=== PATIENT | male | born 1990 | race Two or more races ===

== ENCOUNTER 2019-05-18 19:20 | Emergency (ER) | payer MEDICAID ==
[~2019-05-18] VITALS: Ht 175.3 cm; Wt 80.7 kg
[~2019-05-18 19:20] MED LIST: ALPR2TAB2 PO
--- NOTE | 2019-05-18 19:40 | NUR ---
PT BIBSELF C/O COUGH AND CONGESTION X2 DAYS. ALSO C/O FEVER. PT AAOX4. RESPIRATIONS EVEN AND UNLABORED. SKIN WARM AND INTACT. VITALS STABLE. TRACK BROOM OPERATOR ACUTE DISTRESS NOTED AT THIS TIME. WILL CONTINUE TO MONITOR
[2019-05-18] MEDS ORDERED: predniSONE 20 MG TABLET PO ONE (20:00)
[2019-05-18] MEDS ORDERED: IPRATROPIUM NEB FS 0.5 MG/2.5 ML AMPUL.NEB NEB ONE (20:00)
[2019-05-18] MEDS ORDERED: ALBUTEROL FS 2.5 MG/3 ML VIAL.NEB NEB ONE (20:00)
[2019-05-18] MEDS ORDERED: predniSONE 20 MG TABLET ONE (20:04)
--- NOTE | 2019-05-18 20:27 | NUR ---
RT AT BEDSIDE FOR BREATHING TREATMENT
[2019-05-18] MEDS ORDERED: IPRATROPIUM NEB FS 0.5 MG/2.5 ML AMPUL.NEB ONE (20:29)
[2019-05-18] MEDS ORDERED: ALBUTEROL FS 2.5 MG/3 ML VIAL.NEB ONE (20:29)
--- NOTE | 2019-05-18 21:03 | NUR ---
Patient discharged to home in stable condition. Written and verbal after care instructions given. Patient verbalizes understanding of instruction.Pt ambulatory with a steady gait
[2019-05-18 21:06] VITALS: BP 138/79
== END 2019-05-18 21:06 | disposition home or self-care (01) ==
LOC: ER 19:27
DX: J06.9 Acute upper respiratory infection, unspecified (principal); F41.9 Anxiety disorder, unspecified; Z88.0 Allergy status to penicillin; Z79.899 Other long term (current) drug therapy
CPT/HCPCS: 71045; 94640 ×2; 99284; J7512

== ENCOUNTER 2019-11-17 15:29 | Emergency (ER) | payer MEDICAID, OTHER ==
[~2019-11-17] VITALS: Ht 175.3 cm; Wt 77.1 kg
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
[2019-11-17] MEDS ORDERED: IBUPROFEN 600 MG TABLET PO ONE ×2 (16:08→16:30)
[2019-11-17 16:15] VITALS: BP 138/86
--- NOTE | 2019-11-17 16:15 | NUR ---
Patient discharged to home in stable condition. Written and verbal after care instructions given. Patient verbalizes understanding of instruction and RX. Pt given MD refferal. Pt denies pain. Ambulated with steady gait.
== END 2019-11-17 16:16 | disposition home or self-care (01) ==
LOC: ER 15:39
DX: S22.088A Other fracture of T11-T12 vertebra, initial encounter for closed fracture (principal); G89.29 Other chronic pain; Z88.0 Allergy status to penicillin; Z60.2 Problems related to living alone; Z79.899 Other long term (current) drug therapy; X58.XXXA Exposure to other specified factors, initial encounter; Y93.89 Activity, other specified; Y92.89 Other specified places as the place of occurrence of the external cause; Y99.8 Other external cause status

== ENCOUNTER 2020-01-05 12:55 | Emergency (ER) | payer OTHER ==
[~2020-01-05] VITALS: Ht 175.3 cm; Wt 78.0 kg
[2020-01-05 13:08] VITALS: BP 147/96
--- NOTE | 2020-01-05 13:57 | NUR ---
Patient discharged to home in stable condition. Written and verbal after care instructions given. Patient verbalizes understanding of instruction.
== END 2020-01-05 13:59 | disposition home or self-care (01) ==
LOC: ER 12:59
DX: L03.114 Cellulitis of left upper limb (principal); L02.414 Cutaneous abscess of left upper limb; F41.9 Anxiety disorder, unspecified; Z88.0 Allergy status to penicillin; Z60.2 Problems related to living alone; Z79.899 Other long term (current) drug therapy

== ENCOUNTER 2021-01-10 08:16 | Emergency (ER) | payer OTHER ==
[~2021-01-10] VITALS: Ht 177.8 cm; Wt 91.2 kg
[2021-01-10 08:24] VITALS: BP 132/65
--- NOTE | 2021-01-10 08:24 | NUR ---
PT BIB PD FROM HOME, PER EMS REPORT PT TRIED TO TIE A SUSPENDER TO HIS NECK S/P ARGUMENT W/ . PT DENIES SI OTHERWISE. PT PLACED ON MONITOR. PD AT BEDSIDE AWAITING MD HINTON.
--- NOTE | 2021-01-10 08:46 | NUR ---
PT REFUSING BLOOD DRAW. DR TRACEY AWARE
--- NOTE | 2021-01-10 09:07 | NUR ---
AMY BABB TALKING TO PATIENT.
--- NOTE | 2021-01-10 10:00 | NUR ---
PLACED ON 5150 FOR DTS BY PD.
--- NOTE | 2021-01-10 10:08 | NUR ---
PT PLACED ON RESTRAINTS, COOPERATIVE TO STAFF. SITTER AT BEDSIDE. WILL CONTINUE TO MONITOR.
--- NOTE | 2021-01-10 10:23 | NUR ---
INVESTMENT OFFICER AT BEDSIDE FOR BLOOD DRAW.
[2021-01-10 10:29] LABS: BASOPHILS # (AUTO) 0.1 /CMM (0.0-0.2); BASOPHILS % (AUTO) 1.2 % (0.0-2.0); EOSINOPHILS % (AUTO) 0.1 % (0.0-6.0); HEMATOCRIT 41 % (39-51); HEMOGLOBIN 13.8 g/dL (13.5-17.5); LYMPHOCYTES # (AUTO) 2.6 /CMM (0.8-4.8); LYMPHOCYTES % (AUTO) 39.1 % (20.0-44.0); MEAN CORPUSCULAR HGB CONC 33 g/dl (31.0-36.0); MEAN CORPUSCULAR VOLUME 87 fL (80-96); MONOCYTES # (AUTO) 0.9 /CMM (0.1-1.30); NEUTROPHILS # (AUTO) 3.1 /CMM (1.8-8.9); NEUTROPHILS % (AUTO) 46.6 % (43.0-81.0); PLATELET COUNT (AUTO) 301 /CMM (150-450); RED BLOOD CELL COUNT(AUTO) 4.74 MIL/uL (4.5-6.0); WHITE BLOOD COUNT (AUTO) 6.7 K/uL (4.3-11.0)
[2021-01-10 10:32] LABS: CALCIUM, SERUM 8.7 mg/dL (8.5-10.1); CARBON DIOXIDE 28 mmol/L (21-32); CHLORIDE 106 mmol/L (98-107); CREATININE 0.9 mg/dL (0.6-1.3); GLUCOSE 89 mg/dL (74-106); POTASSIUM 3.7 mmol/L (3.5-5.1); SODIUM SERUM 142 mmol/L (136-145); UREA NITROGEN, BLOOD 19 mg/dL (7-18)
--- NOTE | 2021-01-10 10:35 | NUR ---
PT PROVIDED W/ MEAL TRAY.
[2021-01-10 10:38] LABS: ACETAMINOPHEN 0 ug/ml (10-30); ALBUMIN 4.1 g/dL (3.4-5.0); ALCOHOL, BLOOD < 3 mg/dL (0-0); ALKALINE PHOSPHATASE 113 U/L (46-116); ASPARTATE AMINOTRANSFERASE 23 U/L (15-37); BILIRUBIN,DIRECT 0.2 mg/dL (0.0-0.2); BILIRUBIN,TOTAL 0.7 mg/dL (0.2-1.0); TOTAL PROTEIN, SERUM 8.1 g/dL (6.4-8.2)
[2021-01-10 10:49] LABS: ALANINE AMINOTRANSFERASE 46 U/L (12-78)
[2021-01-10 11:04] LABS: BILIRUBIN,URINE SMALL (NEGATIVE); COLOR,URINE YELLOW (YELLOW); LEUKOCYTE ESTERASE ,URINE Negative (NEGATIVE); NITRITE, URINE Negative (NEGATIVE); PROTEIN,URINE Trace mg/dl (NEGATIVE); UGLUCOSE Negative (NEGATIVE)
[2021-01-10 11:11] LABS: BACTERIA,URINE None seen /HPF (None Seen); RBC,URINE 0-2 /HPF (0-2); SQUAMOUS EPITHELIAL CELL,UR None Seen /HPF (None Seen); WBC,URINE 0-2 /HPF (0-3)
--- NOTE | 2021-01-10 12:10 | NUR ---
PER RICCARDO TRACEY, PT IS MEDICALLY CLEARED. TRIED TO CALL ART RULING MACHINE FEEDER FOR PSYCH EVAL. UNABLE TO LEAVE A MESSAGE.
--- NOTE | 2021-01-10 12:31 | NUR ---
SS Consult: SS Consult requested for attempted Suicide. The pt. is a 30-year old male in ED. SW met with pt. bedside. The pt. is alert & oriented x 4. Pt. appears intoxicated as evidenced by slightly slurred speech, glossy eyes. Pt. with full affect and poor insight and poor judgement. Pt. is irritable and remained cooperative throughout interview. The pt. stated that his girlfriend/, Peri James gave to their child a couple of days ago and the is still in NICU. Per Pt. he was concerned because his girlfriend would not listen to him and rest. The pt. stated that he then used his suspenders to hang himself to get his girlfriends attention. Pt. stated that this was a superficial attempt and showed SW that he has no alonzo on his neck and used an elastic band. Pt. is showing signs of possible Borderline Personality Disorder. Pt. stated that if he goes home today he does not feel he will be unsafe. Pt. denies suicidal ideation or plan for suicide at this time. SW assessed pt. mental health Hx. Pt denies Hx. of SI or depression. Pt. stated that he is under the care of psychiatrist, Dr. Levine for anxiety. Pt. could not elaborate or provide contact number. SW offered to make safety plan with pt. and his family. Pt. gave verbal consent for SW to speak to his mother. Pt. is agreeable and had SW call his mother, Jo Ann Bonner [phone] so she may ask the pt.s girlfriend, Peri James to provide SW with psychiatrist number. However, upon speaking with Peri James it was very evident she is also highly intoxicated. Peri James could not and did not provide psychiatrist number. HOLLEY educated pt.s family regarding possibility of personality disorder, signs & symptoms. HOLLEY provided family with mental health urgent care centers, outpatient psychiatry and counseling resources and Abner expressed understanding and is agreeable to take pt. is needed. Pt. resides with his mother, grandmother, sister and girlfriend at [[address] [facility] [address] [facility] [facility] [address]]. Abner informed HOLLEY that the pt. has been abusing prescription medication since the age of 16 when he was prescribed with Xanax. SW provide family with Addiction resources as pt. requires rehab. Pt. denies drug use and denies it is a problem for him. Plan: HOLLEY discussed pt.s care with Dr. Deleon. Dr. Deleon agreeable to hold pt. for a few hours for pt. to sober up. Patient will be seen by bessemer bottom maker, Raul Sherman WOOD AND HARDWARE OUTFITTER [phone] as pt. was informed after assessment that [employer] placed pt. on a 5150 hold for DTS. If hold is broken by bessemer bottom maker, Patients mother, Jo Ann Bonner [phone] should be called in a few hours to filler picker the pt. Pt. is agreeable to [facility] to [facility] care centers if he does not feel safe. SW discussed pt.s self-determination with family. Family stated they understand that pt. must come to the realization that he needs psychiatric and drug treatment to change. HOLLEY emailed the following resources to pt.s mother at [email or web address] and placed hard copy in pt.s discharge packet: ADDICTION RESOURCES For Drugs and Alcohol [facility] Substance Abuse Helpline([facility] Outpatient treatment, residential treatment, recovery support for youth and adults [facility] www.actionfamilycounsAtheroNova.[employer] [facility] Teen programs for drug/alcohol education and support [place]. Program for adults, sliding scale provides support and education Abby Pazien www.Terra Matrix MediaNaturalPath Mediaation.org [place]; Outpatient/residential treatment programs; transition to sober living [facility] www.cri-help.org [place]; Outpatient and residential treatment programs; transition to sober living [facility] [place]; Outpatient education and supportive programs for teens and adults [facility] www.oasiswomensrecovery.org [place]; Residential treatment and work program for females only [place] www.phoTurnStarxhouse.org [place]: Outpatient/residential treatment program for teens and young adults [facility] www.[facility].org [place] Detox, inpatient, outpatient for adults and youth [facility], [facility]. [facility]; Outpatient programs and referrals to community residential programs. Alcoholics Anonymous -SFV information and meeting and schedules www.aa-intergroup.org Cl-Ezgp-Zpaydkd https://al-anon.org/ [place] support groups for family of alcoholics. Marijuana Anonymous www.Nexus DxistrNaseeb Networks6.org -sfv listing of meetings Narcotics Anonymous www.na.org SOBER LIVING RESOURCES [facility] www.soberhousing.net A non-profit agency that provides resources to recovery and sober living homes throughout [facility] Sober Living Homes: A Work in Progress, [facility], [place] [facility] Womens Sober Living Homes: [facility] x [address] [place], [place] [facility] Coed Sober Living Homes: [facility] Counseling--Outpatient [facility] [address], [place] [address] (Specializes in in-depth psychotherapy for emotional distress: anxiety, depression, interpersonal conflicts, life transitions, childhood abuse) [facility] [address] [place] [address] (Assist with solving problem marital difficulties, separation & divorce, aging parents, & grief, chronic & terminal illness) [facility] [address] [place] [address] (Deal with loss & grief, anxiety, marital difficulties) Homebound/Mental Health Services [address] [facility], [address] [place], [place] [address] (Provide in-home mental services to people who are incapable of leaving their homes) [facility]eds of the Elderly Senior Service/[facility] Center [address] [place], [place] [id number] [facility] [address] [place], [place] [id number] PSYCHIATRIC OUTPATIENT SERVICES [facility] Partial Hospitalization and Intensive Outpatient Program (Managed Care and [place] Only)[address] [facility] [phone] [facility] Partial Hospitalization and Outpatient [id number] [place], [place] [phone] [facility] Partial Hospitalization and Outpatient [id number] [facility]. [place], [place] [phone] [facility] [place] [id number] [facility]. [address] [place], [place] [phone] [facility] Partial Hospitalization and Outpatient [id number] [facility] [place], [phone] [place] [facility] [address] [place] [address] Addendum: 01/10/21 at 1233 by AMY BABB SS assessment completed at 10 am.
--- NOTE | 2021-01-10 12:33 | NUR ---
HOLLEY called control and recovery combat rescue, [employer] [phone] as pt. is on hold.
--- NOTE | 2021-01-10 12:46 | NUR ---
PT MANAGE TO GET OFF HIS RESTRAINTS, ELOPED FROM THE BACK DOOR. [employer] CALLED TO REPORT.
== END 2021-01-10 13:38 | disposition left against medical advice (07) ==
LOC: ER 08:18
DX: Z02.89 Encounter for other administrative examinations (principal); F41.9 Anxiety disorder, unspecified; Z88.0 Allergy status to penicillin; Z79.899 Other long term (current) drug therapy
CPT/HCPCS: 36415; 80048-TC; 80076-TC; 81001; 85025-TC; G0480

== ENCOUNTER 2022-03-31 12:41 | Emergency (ER) | payer OTHER ==
[~2022-03-31] VITALS: Ht 167.6 cm; Wt 81.6 kg
--- NOTE | 2022-03-31 13:40 | NUR ---
Patient discharged to [place] in stable condition. Written and verbal after care instructions given. Patient verbalizes understanding of instruction.
[2022-03-31 13:41] VITALS: BP 145/86
== END 2022-03-31 13:41 ==
LOC: ER 12:42
DX: F19.10 Other psychoactive substance abuse, uncomplicated (principal); F41.9 Anxiety disorder, unspecified; Z88.0 Allergy status to penicillin; Z79.899 Other long term (current) drug therapy